=== PATIENT | female | born 1960 | race Hispanic/Latino ===

== ENCOUNTER 2025-01-03 16:45 | Emergency (ER) | payer MEDICARE, OTHER ==
[~2025-01-03] VITALS: Ht 149.9 cm; Wt 67.6 kg
--- NOTE | 2025-01-03 17:13 | ERN ---
General Chief Complaint: Chest Pain Stated Complaint: CP Time Seen by MD: 16:53 Source: patient History of Present Illness Initial Comments In his is a 64-year-old female coming in to be evaluated for chest pressure. Patient states that the chest pressure began earlier today lasted about 30 minutes and resolved on its own. Patient states that she had one similar episode in the past which went away on its own. Patient has a history of hypertension and hyperlipidemia. At the moment evaluation in ER stretcher patient states her pain has subsided. Past Medical History Past Medical History: Cancer, Depression, Diabetes-Type II, High Cholesterol, Hypertension Medical History Other: THYROID DISEASE, L BREAST CA Past Surgical History: Other Surgical History Other: L MASTECTOMY ROS Dictation CONSTITUTIONAL: No chills, no fever, no weakness, no diaphoresis, no malaise. HEAD/FACE: No signs of trauma. EENT: No eye pain, no blurred vision, no tearing, no double vision, no ear pain, no ear discharge, no nose pain, no nasal congestion, no throat pain, no throat swelling, no mouth pain. RESPIRATORY: No cough, no orthopnea, no SOB, no stridor, no wheezing. CARDIOVASCULAR: chest pain, no edema, no palpitations, no syncope. GASTROINTESTINAL/ABDOMINAL: No abdominal pain, no constipation, no diarrhea, no nausea, no vomiting. GENITOURINARY: No abnormal discharge, no dysuria, no frequent urination, no hematuria. No complaints of pain in the genitals. MUSCULOSKELETAL: No back pain, no gout, no joint pain, no joint swelling, no muscle pain, no muscle stiffness, no neck pain. INTEGUMENTARY: No change in color, no change in hair/nails, no dryness, no lesion, no lumps, no rash. NEUROLOGICAL/PSYCH: No anxiety, not depressed, no emotional problem, no headach e, no numbness, no pre-existing deficit, no history of seizures, no tremors, no weakness. HEMATOLOGIC/LYMPHATIC: Not anemic, no history of blood clots, no apparent bleeding, no bruising, glands not swollen. All Systems Negative, Except as Noted. Physical Exam Physical Exam Dictation VITAL SIGNS: Reviewed. GENERAL APPEARANCE: Alert, oriented x3, no acute distress, obese. HEAD AND FACE: Non-traumatic. EYES: PERRL, pink conjunctivas, eyelid no trauma, anterior chamber clear. EARS: Pinnas intact and no signs of trauma or erythema. Ear canals clear and no discharge. TMs no erythema. NOSE: No discharge, no bleeding. OROPHARYNX: Mouth normal, teeth no caries, tongue pink. Pharynx clear, no erythema. Tonsils no exudates, no abscesses noted. Mucous membrane moist. NECK: Supple, non-tender, no thyromegaly, no masses, no JVD, no bruits. BREAST: Deferred. CHEST: No tenderness, no crepitus, no paradoxical movement, no retractions. LUNGS: Clear, well-ventilated, symmetric, no rales, no wheezing, no rhonchi, no stridor, good breath sounds bilaterally. HEART: Regular rate, regular rhythm, no murmur, no gallops. VASCULAR: No peripheral edema. ABDOMEN: Soft, positive bowel sounds, nondistended, no guarding, nontender, no rebound, no masses no hepatomegaly, no splenomegaly, no Beth's sign, no hernias. RECTAL: Deferred. GENITAL: Deferred. NEUROLOGICAL: Normal speech, gross motor function intact, gross sensory function intact. MUSCULOSKELETAL: Neck nontender, full range of motion, back nontender, full range of motion. EXTREMITIES: Nontender, full range of motion. SKIN: Color pink, dry, no turgor, no rash, no lacerations, no abrasions, no contusions. LYMPHATICS: Deferred. Results Laboratory and Microbiology Lab and Micro Result Laboratory Tests Test 01/03/25 17:38 White Blood Count 6.6 K/uL (4.8-10.8) Red Blood Count 3.95 MIL/uL (4.00-5.50) L Hemoglobin 13.3 g/dL (12.0-16.0) Hematocrit 39.1 % (36-48) Mean Corpuscular Volume 99.0 fL (79-99) Mean Corpuscular Hemoglobin 33.7 pg (27.0-33.0) H Mean Corpuscular Hemoglobin Concent 34.0 g/dL (32.0-36.0) Red Cell Distribution Width 13.2 % (11.0-15.5) Platelet Count 191 K/uL (130-400) Mean Platelet Volume 11.3 fL (7.5-10.5) H Immature Granulocyte % (Auto) 0.3 % (0-1) Neutrophils (%) (Auto) 70.1 % (40.0-77.0) Lymphocytes (%) (Auto) 19.3 % (21.0-51.0) L Monocytes (%) (Auto) 7.7 % (3.0-13.0) Eosinophils (%) (Auto) 2.3 % (0.0-8.0) Basophils (%) (Auto) 0.3 % (0.0-5.0) Neutrophils # (Auto) 4.7 K/uL (1.8-7.7) Lymphocytes # (Auto) 1.3 K/uL (1.0-4.8) Monocytes # (Auto) 0.5 K/uL (0.1-1.0) Eosinophils # (Auto) 0.15 K/uL (0.00-0.70) Basophils # (Auto) 0.02 K/uL (0.00-0.20) Absolute Immature Granulocyte (auto 0.02 K/uL (0-1) Nucleated Red Blood Cells 0.0 % (0.0-0.19) Prothrombin Time 10.5 SEC (9.6-11.6) Prothromb Time International Ratio 0.99 (0.85-1.15) Sodium Level 141 mmol/L (136-145) Potassium Level 3.5 mmol/L (3.5-5.1) Chloride Level 102 mmol/L (101-111) Carbon Dioxide Level 29 mmol/L (21-32) Blood Urea Nitrogen 13 mg/dL (7-18) Creatinine 0.9 mg/dL (0.5-1.0) Glomerular Filtration Rate Calc 71 mL/min (>90) Random Glucose 86 mg/dL (70-105) Total Calcium 9.1 mg/dL (8.5-10.1) Magnesium Level 1.80 mg/dL (1.80-2.40) Troponin I High Sensitivity < 4 ng/L (4-50) L B-Type Natriuretic Peptide < 5 pg/mL (0-100) Labs Reviewed?: Yes EKG/XRAY/US/CT/MRI EKG Comment 01/03/2025 time 6:15 p.m. Ventricular rate [address] wave elevation or depression X-RAY Comment [facility] [address] [address] IMAGING REPORT Signed PATIENT: ANUSHA VALLE MR#: [id number] : 1960 SEX: F AGE: 64 LOCATION: [facility] ORDER 57 STATUS: REG ER REPORT#: [id number] SERVICE 56 REASON: cp ORDERING PHYSICIAN: SELVIN HAMPTON MD PROCEDURE: CXR1VW - CHEST 1VW CHEST 1VW HISTORY: Chest pain COMPARISON: None FINDINGS: A frontal projection of the chest was obtained. No acute pulmonary infiltrates is seen. The heart is normal in size. Prominent interstitial markings are seen. Degenerative changes are seen. No evidence of aortic calcification is seen. IMPRESSION: 1. No acute pulmonary infiltrate is seen. DICTATED BY: ANALIA WARNER MD DATE: 01/03/251811 ELECTRONICALLY SIGNED BY: ANALIA WARNER MD DATE: 01/03/251819 MDM MDM: Differential diagnosis: GERD, NSTEMI, STEMI Rationale: Tests considered and ordered secondary to shared decision making include: Previous outside records reviewed: Old ER visits. Risk of complication and/or morbidity or mortality of patient management: None Medications-Per medication reconciliation Need for hospitalization: Patient does not meet criteria for hospitalization. Patient is a 64-year-old female coming in to be evaluated for momentarily chest pain. Patient states that the chest discomfort lasted for a moment and has subsided since. Patient was evaluated in triage in EMS stretcher and states her pain had subsided some time before. Cardiac workup negative for acute findings. I did advised her appropriate follow up with PCP for ongoing management. ED Course Orders Procedure Category Date Status Time Cbc With Differential LAB 01/03/25 Complete 16:57 Prothrombin Time With LAB 01/03/25 Complete INR 16:57 B-Type Natriuretic LAB 01/03/25 Complete Peptide 16:57 Chest 1vw RAD 01/03/25 Resulted 16:57 12 Lead Ekg Tracing- EKG 01/03/25 Logged Technical 16:57 Magnesium LAB 01/03/25 Complete 16:57 Troponin I High LAB 01/03/25 Complete Sensitivity 16:57 Urinalysis Profile LAB 01/03/25 Logged 16:57 Basic Metabolic Panel LAB 01/03/25 Complete 16:57 Lidocaine Hcl 2% PHA 01/03/25 Logged Viscous (Lidocaine Hcl 19:00 Mag/Alum/Simeth 30ml PHA 01/03/25 Logged (Maalox Plus 30ml) 19:00 Current Medications Medications (Trade) Dose Ordered Sig/K[place]inder Route PRN Reason Start Time Stop Time Status Last Admin Dose Admin Al Hydroxide/Mg Hydroxide (MAALox PLUS 30ML) 30 ml ONCE ONCE PO 01/03/25 19:00 01/03/25 19:01 UNV Lidocaine HCl (Lidocaine HCl 2% Viscous) 10 ml ONCE ONCE PO 01/03/25 19:00 01/03/25 19:01 UNV Vital Signs Date Time Temp Pulse Resp B/P (MAP) Pulse Ox O2 Delivery O2 Flow Rate FiO2 01/03/25 16:49 97.9 93 17 148/94 97 Room Air 0 DX & DISP Disposition: Discharge Departure Impression: Primary Impression: GERD (gastroesophageal reflux disease) Additional Impression: Chest wall pain Condition: Stable Additional Instructions: You have been reviewed in the emergency department at [facility] after presenting with chest pain. After considering your history, your risk factors, your EKG and your blood test troponins, have been found to be at very low risk less than (1 in 100) of having a major adverse cardiac event (like heart attack) in the near future. In the " low risk" group, the risks of doing further tests and treatment as the inpatient outweighs the benefits. In many patients in the low risk group for the test of any sort or unnecessary, however he should discuss this further with his general practitioner who will understand the medical and personal backgrounds better. Because we have never declared you" no risk" we would suggest. 1 returning for medical review if you have further episodes of chest pain/arm pain or other concerning symptoms like dizziness, collapse, palpitations or shortness of breath. 2. Following up with your local doctor who will consider the need for further testing and will also ensure that any modifiable risk factors you may have for heart disease are optimally managed. Patient will be discharged in stable condition at the moment discharge patient states , no chest pain Referrals: SELF,REFERRAL (PCP) MAGUI HERNANDEZ MD Time of Disposition: 18:37 SELVIN HAMPTON MD Jan 03, 2025 17:13
--- NOTE | 2025-01-03 17:30 | NUR ---
PT/EMS JUST BEDDED IN [facility] A[facility]
[2025-01-03 17:55] LABS: BASOPHILS # (AUTO) 0.02 K/uL (0.00-0.20); BASOPHILS % (AUTO) 0.3 % (0.0-5.0); EOSINOPHILS # (AUTO) 0.15 K/uL (0.00-0.70); EOSINOPHILS % (AUTO) 2.3 % (0.0-8.0); HEMATOCRIT 39.1 % (36-48); IMMATURE GRANULOCYTE ABSOLUTE 0.02 K/uL (0-1); LYMPHOCYTES # (AUTO) 1.3 K/uL (1.0-4.8); LYMPHOCYTES % (AUTO) 19.3 % (21.0-51.0); MEAN CORPUSCULAR HEMOGLOBIN 33.7 pg (27.0-33.0); MONOCYTES # (AUTO) 0.5 K/uL (0.1-1.0); MONOCYTES % (AUTO) 7.7 % (3.0-13.0); NEUTROPHILS # (AUTO) 4.7 K/uL (1.8-7.7); NEUTROPHILS % (AUTO) 70.1 % (40.0-77.0); PLATELET COUNT (AUTO) 191 K/uL (130-400); RED BLOOD CELL COUNT(AUTO) 3.95 MIL/uL (4.00-5.50); RED CELL DISTRIBUTION WIDTH 13.2 % (11.0-15.5); WHITE BLOOD COUNT (AUTO) 6.6 K/uL (4.8-10.8)
[2025-01-03 18:02] LABS: CREATININE 0.9 mg/dL (0.5-1.0); POTASSIUM 3.5 mmol/L (3.5-5.1)
[2025-01-03 18:08] LABS: INR 0.99 (0.85-1.15); PROTHROMBIN TIME 10.5 SEC (9.6-11.6)
[2025-01-03 18:11] LABS: MAGNESIUM 1.8 mg/dL (1.80-2.40)
--- NOTE | 2025-01-03 18:20 | HMCIMG ---
CHEST 1VW HISTORY: Chest pain COMPARISON: None FINDINGS: A frontal projection of the chest was obtained. No acute pulmonary infiltrates is seen. The heart is normal in size. Prominent interstitial markings are seen. Degenerative changes are seen. No evidence of aortic calcification is seen. IMPRESSION: 1. No acute pulmonary infiltrate is seen.
[2025-01-03 18:21] LABS: B-TYPE NATRIURETIC PEPTIDE < 5 pg/mL (0-100)
--- NOTE | 2025-01-03 18:45 | EKG ---
[facility] Test Date: 2025-01-03 Test Time: 18:15:20 Pat Name: ANUSHA VALLE Department: ED Room: Gender: F Shank Maker: [id number] : 1960 Requested By: SELVIN HAMPTON Order Number: [id number] Reading MD: Nitesh Mart Measurements Intervals [place] Rate: 91 P: 28 [place]: 142 QRS: -12 QRSD: 84 T: 15 QT: 377 QTc: 464 Interpretive Statements Sinus rhythm Probable left atrial enlargement No previous ECG available for comparison Electronically Signed On 01-05-2025 10:30:01 CDT by Nitesh Mart Please click the below link to view image of tracing.
[2025-01-03] MEDS: MAG/ALUM/SIMETH 30 ML UDCUP PO ONE (19:17)
[2025-01-03] MEDS: LIDOCAINE HCL 2% VISCOUS 15 ML UDCUP PO ONE (19:17)
[2025-01-03 19:38] VITALS: BP 135/87; PULSE 88; RESP 18; TEMP 97.9; O2SAT 97
== END 2025-01-03 19:53 | disposition home or self-care (01) ==
LOC: EDH 16:45
DX: K21.9 Gastro-esophageal reflux disease without esophagitis (principal); R07.89 Other chest pain; E11.9 Type 2 diabetes mellitus without complications; E78.00 Pure hypercholesterolemia, unspecified; I10 Essential (primary) hypertension; F32.A Depression, unspecified; Z85.3 Personal history of malignant neoplasm of breast
CPT/HCPCS: 36415; 71045; 80048; 83735; 83880; 84484; 85025; 85610; 93005; 99285